=== PATIENT | female | born 1965 | race Caucasian/White ===

== ENCOUNTER 2018-03-06 13:27 | Emergency (ER) | payer BC ==
[~2018-03-06] VITALS: Ht 162.6 cm; Wt 50.8 kg
[2018-03-06] MEDS ORDERED: ASPIRIN 325 MG TABLET PO ONE (13:45)
[2018-03-06] MEDS ORDERED: ONDANSETRON 4 MG/2 ML VIAL IV ONE (13:45)
[2018-03-06] MEDS ORDERED: NITROGLYCERIN 0.4 MG/TAB BOTTLE SL ONE ×2 (13:45→13:50)
[2018-03-06] MEDS ORDERED: IV NORMAL SALINE 500 ML BAG IV ONE (13:45)
[2018-03-06] MEDS ORDERED: ONDANSETRON 4 MG/2 ML VIAL ONE ×2 (13:49→14:33)
[2018-03-06 13:50] VITALS: BP 110/70
[2018-03-06] MEDS ORDERED: ASPIRIN 325 MG TABLET ONE (13:50)
--- NOTE | 2018-03-06 13:50 | NUR ---
Recreational [employer] assumes care. Hands off report received from nurse Jasso. All ordered meds are given (e.g. aspirin and nitroglycerin). Patient is AOx4, respiration:easy, respiration:easy, pending results and disposition, NAD.
[2018-03-06 13:57] LABS: BASOPHILS % (AUTO) 0.4 % (0.0-2.0); EOSINOPHILS % (AUTO) 0.3 % (0.0-7.0); HEMATOCRIT 39.6 % (31.2-41.9); HEMOGLOBIN 13.4 g/dL (10.9-14.3); LYMPHOCYTES # (AUTO) 1.3 K/uL (20.0-40.0); LYMPHOCYTES % (AUTO) 16.6 % (20.5-51.5); MEAN CORPUSCULAR HEMOGLOBIN 30.9 uug (24.7-32.8); MEAN CORPUSCULAR HGB CONC 34 g/dL (32.3-35.6); MEAN CORPUSCULAR VOLUME 91.5 fL (75.5-95.3); MONOCYTES # (AUTO) 0.5 K/uL (2.0-10.0); MONOCYTES % (AUTO) 6.8 % (0.0-11.0); NEUTROPHILS # (AUTO) 5.7 K/uL (1.8-8.9); NEUTROPHILS % (AUTO) 75.9 % (38.5-71.5); PLATELET COUNT (AUTO) 197 K/uL (179-408); RED BLOOD CELL COUNT(AUTO) 4.33 MIL/uL (3.63-4.92); WHITE BLOOD COUNT (AUTO) 7.6 K/uL (3.8-11.8)
[2018-03-06 14:06] LABS: CREATININE 0.7 mg/dL (0.6-1.3); POTASSIUM 3.4 mmol/L (3.5-5.1)
[2018-03-06 14:19] LABS: BILIRUBIN,DIRECT 0.2 mg/dL (0.0-0.2); BILIRUBIN,TOTAL 0.7 mg/dL (0.2-1.0); TOTAL PROTEIN, SERUM 7.5 g/dL (6.4-8.2)
[2018-03-06] MEDS ORDERED: MORPHINE SULFATE 4 MG/1 ML DISP.SYRIN IV ONE (14:30)
[2018-03-06] MEDS ORDERED: ONDANSETRON IV *ER 4 MG/2 ML VIAL IV ONE (14:30)
--- NOTE | 2018-03-06 14:32 | NUR ---
Patient refused IV morphine or additional dose of Zofran IV, MD notified. Patient wants imaging of her breasts to rule out leaks from the breast implants.
[2018-03-06] MEDS ORDERED: MORPHINE SULFATE 4 MG/1 ML DISP.SYRIN ONE (14:33)
--- NOTE | 2018-03-06 15:25 | NUR ---
IV removed@[id number]. Catheter intact and site benign. Pressure and 4x4 gauze applied to site. No bleeding noted. CD copy of the radilogy test & blood test results were given to patient per patient's request. Patient discharged to home in stable conditon. Written and verbal after care instructions given to patient and spouse. Patient and family member verbalized understanding of instructions.
--- NOTE | 2018-03-06 15:29 | NUR ---
Dr Rogers explained again (2x) to patient and family re: results, disposition & discharge instructions. Patient and spouse verbalized understanding of instructions.
== END 2018-03-06 15:47 | disposition home or self-care (01) ==
LOC: ER 13:28
DX: R07.89 Other chest pain (principal)
CPT/HCPCS: 36415; 70030-TC; 71045; 76642-TC; 85025; 85730; 93005; A4663; J2270; J2405; J7030